=== PATIENT | female | born 1990 | race American Indian/Alaskan Native ===

== ENCOUNTER 2019-08-17 08:26 | Emergency (ER) | payer MEDICAID ==
[2019-08-17 08:34] VITALS: BP 110/79
[2019-08-17 09:00] LABS: Bacteria,Urine 1+ /HPF (Negative); Bilirubin,Urine NEG (Negative); Blood,Urine SM (Negative); Color,Urine Yellow (Yellow); Mucus,Urine 3+ /HPF; Protein,Urine <15 mg/dL mg/dL (Negative); Urobilinogen,Urine < 2.0 mg/dL (<2.0)
[2019-08-17 09:13] LABS: HCG Qualitative,Urine Negative (Negative)
--- NOTE | 2019-08-17 11:06 | Emergency Department Report ---
Chief Complaint: Abdominal Pain Stated Complaint: PELVIC PAIN, FLU Time Seen by Provider: 08/17/19 10:47 - HPI History of Present Illness: This 29-year-old female with no medical history who presents to ED him plenty of flulike symptoms such as fever running had a besides physical. Patient states she has not been taking medication symptoms is intermittent. Patient also stating that she may have a possible STD exposure complaining of vaginal itching, frequent urination. Patient denies fevers/chills/nausea vomiting/abdominal pain/vaginal bleeding vaginal discharge. - ROS Review of Systems: All systems reviewed and negative - Exam Vital Signs: Vital Signs 08/17/19 08:32 Temperature 98.2 F Pulse Rate 86 Respiratory 18 Rate Blood Pressure 110/79 O2 Sat by Pulse 98 Oximetry Physical Exam: Alert and oriented 3 Nontender abdomen Ambulatory without any problems MSE screening note: Focused history and physical exam performed. Due to findings the following was ordered: ED Medical Decision Making - Medical Decision Making She presents for a nonmedical emergency. Urinalysis and urine test was ordered and completed a triage prior to my evaluation of the patient. I discussed urine findings with the patient. Ounces and urine test was negative. Discussed with patient needs to follow up with Dr. Allen or primary care physician. Resources given to patient go get screened for STDs and treated. Vital signs are normal patient is in no acute distress ED Disposition for MSE Clinical Impression: Screen for STD (sexually transmitted disease), Flu-like symptoms Disposition: MED SCREENING EXAM-LEFT Is pt being admited?: No Does the pt Need Aspirin: No Condition: Stable Instructions: Viral Syndrome (ED) Additional Instructions: Make sure to follow up with the primary care physician as discussed. If you have any worsening symptoms or develop new symptoms please return to ED immediately. Referrals: ALISSA ALLEN MD [Staff Physician] - 3-5 Days [facility] [Outside] - 3-5 Days [facility] [Outside] - 3-5 Days Forms: Work/School Release Form(ED) Time of Disposition: 11:09
== END 2019-08-17 11:13 | disposition left against medical advice (07) ==
LOC: ED 08:26
DX: L29.2 Pruritus vulvae (principal); Z11.3 Encounter for screening for infections with a predominantly sexual mode of transmission
CPT/HCPCS: 81001; 81025